=== PATIENT | female | born 2000 | race Two or more races ===

== ENCOUNTER 2022-02-28 17:45 | Outpatient (CLI) | payer OTHER | END 2022-02-28 20:46 | disposition home or self-care (01) | LOC: OBS/DEL 17:45 | PROVIDERS: ATTEND Obstetrics & Gynecology | DX: O26.893 Other specified pregnancy related conditions, third trimester (principal); Z3A.33 33 weeks gestation of pregnancy; R10.2 Pelvic and perineal pain; M54.50 Low back pain, unspecified ==

== ENCOUNTER 2022-04-12 04:50 | Outpatient (CLI) | payer OTHER ==
[2022-04-12] MEDS ORDERED: PRENATAL TABLE1 EAC1 PO (05:05)
[2022-04-12] MEDS ORDERED: FOLIC ACID20 MG PO (05:05)
== END 2022-04-12 11:47 | disposition home or self-care (01) ==
LOC: OBS/DEL 04:50
PROVIDERS: ATTEND Obstetrics & Gynecology
DX: O26.893 Other specified pregnancy related conditions, third trimester (principal); Z3A.39 39 weeks gestation of pregnancy; R10.2 Pelvic and perineal pain

== ENCOUNTER 2022-04-16 13:43 | Inpatient (IN) | payer OTHER ==
[~2022-04-16] VITALS: Ht 160 cm; Wt 92.5 kg
[~2022-04-16 13:43] MED LIST: FOLIC ACID20 MG PO; PRENATAL TABLE1 EAC1 PO
== END 2022-04-19 13:03 | disposition home or self-care (01) | DRG 807 ==
LOC: LDR 13:43 → OB/GYN 13:43
PROVIDERS: ADMIT Obstetrics & Gynecology; ATTEND Obstetrics & Gynecology
PROC: 3E0P7VZ Introduction of Hormone into Female Reproductive, Via Natural or Artificial Opening (ICD-10-PCS; 2022-04-16)
PROC: 4A1HXCZ Monitoring of Products of Conception, Cardiac Rate, External Approach (ICD-10-PCS; 2022-04-16)
PROC: 10E0XZZ Delivery of Products of Conception, External Approach (ICD-10-PCS; principal; 2022-04-17)
PROC: 0HQ9XZZ Repair Perineum Skin, External Approach (ICD-10-PCS; 2022-04-17)
PROC: 3E033VJ Introduction of Other Hormone into Peripheral Vein, Percutaneous Approach (ICD-10-PCS; 2022-04-17)
DX: O70.0 First degree perineal laceration during delivery (principal); Z37.0 Single live birth; Z3A.40 40 weeks gestation of pregnancy; Z20.822 Contact with and (suspected) exposure to COVID-19